=== PATIENT | female | born 2000 | race Two or more races ===

== ENCOUNTER 2022-01-05 14:18 | Inpatient (IN) | payer MEDICAID, OTHER ==
[~2022-01-05] VITALS: Ht 152.4 cm; Wt 63.5 kg
[2022-01-05] MEDS ORDERED: ceFAZolin 2 GM in D5W 5% 100 ML IV ONE (15:15)
[2022-01-05] MEDS ORDERED: LACTATED RINGER'S 1,000 ML IV ONE (15:30)
[2022-01-05] MEDS ORDERED: ACETAMINOPHEN 325 MG TAB PO ONE (17:30)
[2022-01-05 18:51] LABS: Urine Bacteria MANY /hpf (None Seen); Urine Mucus FEW (None Seen); Urine WBC 955 /hpf (0 - 5); Urine WBC Clumps PRESENT /hpf (None Seen)
[2022-01-05 18:55] LABS: Urine Blood 1+ /uL (Negative)
[2022-01-05] MEDS ORDERED: LACTATED RINGER'S 1,000 ML IV SCH (21:00)
[2022-01-06] MEDS ORDERED: ACETAMINOPHEN 325 MG TAB PO PRN (03:00)
[2022-01-06] MEDS ORDERED: ceFAZolin 1GM/50ML 50 ML IV SCH ×2 (08:00)
== END 2022-01-06 07:40 | disposition home or self-care (01) | DRG 566 ==
LOC: UNDOADMOB 14:18 → LDRP 14:18 → OBSVTOIN 01-06 05:54 → INTOOBSV 01-06 05:54
PROVIDERS: ADMIT Obstetrics & Gynecology; ATTEND Obstetrics & Gynecology
DX: O23.02 Infections of kidney in pregnancy, second trimester (principal); Z20.822 Contact with and (suspected) exposure to COVID-19; Z3A.27 27 weeks gestation of pregnancy
CPT/HCPCS: 36415; 59025; 76775; 81001; 81002; 87086; 87088; 87186; 87426; 94760; 94762; 96360; 96361; 96366; G0378; J0690; J7060

== ENCOUNTER 2022-03-23 15:23 | Observation (INO) | payer MEDICAID ==
[2022-03-23 17:21] LABS: Basophils # (auto) 0 10 ^3/uL (0-0.2); Basophils % (auto) 0.4 % (0.0-2.0); Eosinophils # (auto) 0 10 ^3/uL (0-0.8); Eosinophils % (auto) 0.9 % (0.0-7.0); Hematocrit 32.3 % (36.0-46.0); Hemoglobin 10.6 g/dL (12.2-16.2); Lymphocytes # (auto) 1.4 10 ^3/uL (0.4-5.4); Lymphocytes % (auto) 26.1 % (10.0-50.0); Mean Corpuscular Hemoglobin 28.6 pg (28.0-32.0); Mean Corpuscular Hgb Conc. 32.7 g/dL (32.0-36.0); Mean Corpuscular Volume 87.6 fL (80.0-100.0); Monocytes # (auto) 0.5 10 ^3/uL (0-1.3); Monocytes % (auto) 8.9 % (0.0-12.0); Neutrophils # (auto) 3.4 10 ^3/uL (1.6-8.6); Neutrophils % (auto) 63.7 % (37.0-80.0); Nucleated Red Blood Cells % 0.2 %; Red Blood Cells 3.69 10^6/uL (4.0-5.20); Red Cell Distribution Width 13.4 % (11.8-14.3); White Blood Cell 5.3 10^3/uL (4.4-10.8)
[2022-03-23 17:28] LABS: INR 0.88 (0.9-1.15); Partial Thromboplastin Time 27.9 sec (24.6-33.4)
[2022-03-23 17:32] LABS: Albumin 2.3 g/dL (3.4-5.0); Calcium 8.7 mg/dL (8.5-10.1); Potassium 4.2 mmol/L (3.5-5.1)
[2022-03-23 17:34] LABS: BUN/Creatinine Ratio 28.6; Uric Acid 5.8 mg/dL (2.6-6.0)
[2022-03-23 17:37] LABS: Bilirubin, Total 0.2 mg/dL (0.2-1.0); Total Protein 6.4 g/dL (6.4-8.2)
[2022-03-23 17:37] LABS: Urine Bacteria FEW /hpf (None Seen); Urine Blood Negative /uL (Negative); Urine Mucus FEW (None Seen); Urine Specific Gravity 1.027 (1.001-1.035); Urine WBC 10 /hpf (0 - 5)
[2022-03-23] MEDS: TERBUTALINE SULFATE 1 MG/ML 1ML VIAL SC SCH ×2 (18:13→18:35)
[2022-03-23 18:27] LABS: Protein, Urine 152.3 mg/dL (0.0-11.9)
[2022-03-24] MEDS ORDERED: IBUP800T27 PO (07:19)
[2022-03-24] MEDS ORDERED: HYDR-4902 PO (07:19)
[2022-03-24] MEDS ORDERED: DOCU-94 PO (07:19)
== END 2022-03-23 19:41 | disposition home or self-care (01) ==
LOC: LDRP 15:23
PROVIDERS: ADMIT Obstetrics & Gynecology; ATTEND Obstetrics & Gynecology
DX: O13.3 Gestational [pregnancy-induced] hypertension without significant proteinuria, third trimester (principal); Z20.822 Contact with and (suspected) exposure to COVID-19; Z3A.38 38 weeks gestation of pregnancy
CPT/HCPCS: 36415; 59025; 80053; 81001; 81002; 82570; 84156; 84550; 85025; 85610; 85730; 87426; 94760; 96372; G0378; J3105; U0003

== ENCOUNTER 2022-03-24 05:42 | Inpatient (IN) | payer MEDICAID ==
[2022-03-24] VITALS (19 sets, daily range): BP systolic 113–142; BP diastolic 55–89
[~2022-03-24] VITALS: Ht 154.9 cm; Wt 61.7 kg
[2022-03-24] MEDS ORDERED: LACTATED RINGER'S 1,000 ML IV ONE (06:00)
[2022-03-24] MEDS ORDERED: ceFAZolin 1GM/50ML 50 ML IV ONE (06:00)
[2022-03-24] MEDS ORDERED: HYDR-4902 PO (07:19)
[2022-03-24] MEDS ORDERED: DOCU-94 PO (07:19)
[2022-03-24] MEDS ORDERED: IBUP800T27 PO (07:19)
[2022-03-24] MEDS: LACTATED RINGER'S 1,000 ML IV SCH ×3 (07:37→21:26)
[2022-03-24 08:09] LABS: Alcohol, Urine < 3.0 mg/dL (0-10); Amphetamine Screen, Urine NEGATIVE (NEGATIVE); Barbiturate Scree,Urine NEGATIVE (NEGATIVE); Benzodiazephine Screen, Urine NEGATIVE (NEGATIVE); Cannabinoid Screen, Urine NEGATIVE (NEGATIVE); Cocaine Screen, Urine NEGATIVE (NEGATIVE); Opiate Scree,Urine NEGATIVE (NEGATIVE); Phencyclidine Screen, Urine NEGATIVE (NEGATIVE)
[2022-03-24] MEDS ORDERED: FAMOTIDINE (10MG/ML) 2ML VL IV ONE (08:48)
[2022-03-24] MEDS ORDERED: GLYCOPYRROLATE 0.2 MG/ML 1ML VIAL ONE (08:51)
[2022-03-24] MEDS ORDERED: ONDANSETRON HCL 4 MG/2 ML VIAL ONE (08:51)
[2022-03-24] MEDS ORDERED: oxyTOCIN 10 UNIT/ML 10ML VIAL ONE (08:51)
[2022-03-24] MEDS ORDERED: MORPHINE SULF PF 5 MG/10 ML VIAL ONE (08:51)
[2022-03-24] MEDS ORDERED: fentaNYL CITRATE 100 MCG/2 ML VL ONE (08:51)
[2022-03-24] MEDS ORDERED: ePHEDrine SULFATE 50 MG/ML AMP ONE (08:51)
[2022-03-24] MEDS ORDERED: BUPIVACAINE/DEXTROSE MPF 0.75% 2 ML AMP IT ONE (08:52)
[2022-03-24] MEDS ORDERED: ceFAZolin 1GM VL ONE (08:54)
[2022-03-24] MEDS ORDERED: LACT. RINGERS/OXYTOCIN 20UNITS 1,000 ML IV ONE (09:30)
[2022-03-24] MEDS ORDERED: ONDANSETRON HCL 4 MG/2 ML VIAL IV PRN ×3 (09:30→13:00)
[2022-03-24] MEDS ORDERED: GUM (CHEWING) 1 GUM CHEW CHEW ONE (09:30)
[2022-03-24] MEDS ORDERED: ceFAZolin 1GM/50ML 50 ML IV SCH (09:30)
[2022-03-24] MEDS ORDERED: MIDAZOLAM HCL 2MG/2ML 2ml VIAL (1mg/ml) IV PRN (10:00)
[2022-03-24] MEDS ORDERED: HYDROmorphone HCL 2 MG/ML VL/or syr IV PRN (10:00)
[2022-03-24] MEDS ORDERED: NALBUPHINE HCL 10 MG/1ml INJECTION SUBCUT ONE (10:00)
[2022-03-24] MEDS ORDERED: hydrALAZINE HCL 20 MG/ML VL IV PRN (10:00)
[2022-03-24] MEDS ORDERED: NALOXONE HCL 0.4 MG/ML VIAL IV PRN ×2 (10:00→13:00)
[2022-03-24] MEDS ORDERED: LABETALOL HCL 5 MG/ML 4ML SYRINGE IV PRN (10:00)
[2022-03-24] MEDS ORDERED: ePHEDrine SULFATE 50 MG/ML AMP IV PRN (10:00)
[2022-03-24] MEDS ORDERED: DexAMETHasone SOD PHOS 10MG/1ML VIAL INJ IV PRN ×2 (10:00→13:00)
[2022-03-24] MEDS ORDERED: diphenhdrAMINE HCL 50 MG/1 ML VL IV PRN ×2 (10:00→13:00)
[2022-03-24] MEDS ORDERED: hydrALAZINE HCL 20 MG/ML VL ONE (10:14)
[2022-03-24] MEDS ORDERED: hydrALAZINE HCL 20 MG/ML VL IV ONE ×2 (10:20→10:32)
[2022-03-24] MEDS ORDERED: KETOROLAC TROMETH 30 MG/ML 1ML VIAL IV PRN (13:00)
[2022-03-24] MEDS: ACETAMINOPHEN IV 1000 MG/100ML (10MG/ML) IV SCH ×2 (13:41→22:00)
[2022-03-24] MEDS: ceFAZolin 1GM/50ML 50 ML IV SCH (17:41)
[2022-03-24 22:51] LABS: Basophils # (auto) 0 10 ^3/uL (0-0.2); Basophils % (auto) 0.4 % (0.0-2.0); Eosinophils # (auto) 0 10 ^3/uL (0-0.8); Eosinophils % (auto) 0.6 % (0.0-7.0); Hematocrit 27.6 % (36.0-46.0); Hemoglobin 9.3 g/dL (12.2-16.2); Lymphocytes # (auto) 1.1 10 ^3/uL (0.4-5.4); Lymphocytes % (auto) 20.8 % (10.0-50.0); Mean Corpuscular Hemoglobin 29.7 pg (28.0-32.0); Mean Corpuscular Hgb Conc. 33.8 g/dL (32.0-36.0); Monocytes # (auto) 0.5 10 ^3/uL (0-1.3); Monocytes % (auto) 9.6 % (0.0-12.0); Neutrophils # (auto) 3.7 10 ^3/uL (1.6-8.6); Neutrophils % (auto) 68.6 % (37.0-80.0); Nucleated Red Blood Cells % 0.1 %; Red Blood Cells 3.14 10^6/uL (4.0-5.20); Red Cell Distribution Width 13.6 % (11.8-14.3); White Blood Cell 5.3 10^3/uL (4.4-10.8)
[2022-03-25] VITALS (12 sets, daily range): BP systolic 120–147; BP diastolic 55–84
[2022-03-25] MEDS: ceFAZolin 1GM/50ML 50 ML IV SCH ×4 (01:04→22:02)
[2022-03-25] MEDS: ACETAMINOPHEN IV 1000 MG/100ML (10MG/ML) IV SCH (05:30)
[2022-03-25] MEDS: LACTATED RINGER'S 1,000 ML IV SCH (06:00)
[2022-03-25] MEDS ORDERED: IBUPROFEN 800 MG TAB PO PRN (06:45)
[2022-03-25] MEDS ORDERED: BISACODYL 10 MG RECT SUPP PR PRN (06:45)
[2022-03-25] MEDS ORDERED: HYDROcodone-ACET 5/325MG TAB PO PRN ×2 (06:45)
[2022-03-25 07:36] LABS: Basophils # (auto) 0 10 ^3/uL (0-0.2); Basophils % (auto) 0.4 % (0.0-2.0); Eosinophils # (auto) 0 10 ^3/uL (0-0.8); Eosinophils % (auto) 0.7 % (0.0-7.0); Hematocrit 27.5 % (36.0-46.0); Lymphocytes # (auto) 1.1 10 ^3/uL (0.4-5.4); Mean Corpuscular Hgb Conc. 32.9 g/dL (32.0-36.0); Mean Corpuscular Volume 88.3 fL (80.0-100.0); Monocytes # (auto) 0.5 10 ^3/uL (0-1.3); Monocytes % (auto) 10.3 % (0.0-12.0); Neutrophils # (auto) 3.2 10 ^3/uL (1.6-8.6); Neutrophils % (auto) 66.6 % (37.0-80.0); Nucleated Red Blood Cells % 0.1 %; Red Blood Cells 3.11 10^6/uL (4.0-5.20); Red Cell Distribution Width 13.4 % (11.8-14.3); White Blood Cell 4.9 10^3/uL (4.4-10.8)
[2022-03-25] MEDS: DOCUSATE CALCIUM 240 MG CAP PO SCH (10:47)
[2022-03-25] MEDS: DOCUSATE SOD 100 MG CAP PO SCH ×2 (10:47→22:02)
[2022-03-25] MEDS: SIMETHICONE 80 MG CHEWABLE TABLET PO SCH ×2 (22:00→22:02)
[2022-03-26 03:15] VITALS: BP 130/88
[2022-03-26] MEDS: SIMETHICONE 80 MG CHEWABLE TABLET PO SCH ×4 (06:00→21:38)
[2022-03-26 07:00] VITALS: BP 146/73
[2022-03-26] MEDS: DOCUSATE SOD 100 MG CAP PO SCH ×2 (10:00→21:39)
[2022-03-26] MEDS: DOCUSATE CALCIUM 240 MG CAP PO SCH (10:00)
[2022-03-26 11:00] VITALS: BP 128/55
[2022-03-26 15:00] VITALS: BP 145/82
[2022-03-26] MEDS ORDERED: MEASLES, MUMPS & RUBELLA VAC(MMRII) 0.5ML SC ONE (19:00)
[2022-03-26 19:04] VITALS: BP 133/86
[2022-03-26 23:00] VITALS: BP 146/89
[2022-03-27 03:02] VITALS: BP 130/85
[2022-03-27] MEDS: SIMETHICONE 80 MG CHEWABLE TABLET PO SCH (05:42)
[2022-03-27 07:15] VITALS: BP 148/92
[2022-03-27] MEDS: DOCUSATE SOD 100 MG CAP PO SCH (09:43)
[2022-03-27] MEDS: DOCUSATE CALCIUM 240 MG CAP PO SCH (09:43)
[2022-03-27 10:40] VITALS: BP 146/86
[2022-03-27 11:20] VITALS: BP 146/86
== END 2022-03-27 11:20 | disposition home or self-care (01) | DRG 540 ==
LOC: LDRP 05:42
PROVIDERS: ADMIT Obstetrics & Gynecology; ATTEND Obstetrics & Gynecology
PROC: 10D00Z1 Extraction of Products of Conception, Low, Open Approach (ICD-10-PCS; principal; 2022-03-24 08:56)
DX: O13.4 Gestational [pregnancy-induced] hypertension without significant proteinuria, complicating childbirth (principal); O34.211 Maternal care for low transverse scar from previous cesarean delivery; Z37.0 Single live birth; Z3A.38 38 weeks gestation of pregnancy; Z20.822 Contact with and (suspected) exposure to COVID-19
CPT/HCPCS: 36415; 59025; 80307; 85025; 86850; 86900; 86901; 87426; 94760; 94762; 96360; 96361; 96372; G0378; J0131; J0690; J2405; J2590; J3490